=== PATIENT | female | born 1980 | race Caucasian/White ===

== ENCOUNTER 2017-05-08 20:00 | Emergency (ER) | payer MEDICAID ==
--- NOTE | 2017-05-08 21:46 | ERNOTE ---
Medical Problem HPI - Narrative Date of Service: 05/08/17 - General Chief Complaint: General Assessment Time Seen by Provider: 05/08/17 20:11 Source: patient, family, RN notes reviewed, old records Exam Limitations: no limitations - Immun/Allergies/Home Medications Immunizations: IMMUNIZATION HX Immunizations Up to Date Yes History of Influenza Vaccine No Hx Pneumococcal Vaccination No Allergies/Adverse Reactions: Allergies codeine [Codeine] Allergy (Unknown, Verified 05/08/17 20:08) Sulfa (Sulfonamide Antibiotics) [Sulfa(Sulfonamide Antibiotics)] Allergy ( Unknown, Verified 05/08/17 20:08) influenza virus vaccine qs 2015-101 [From Fluarix Quad 1585-3240 (PF)] Allergy ( Verified 05/08/17 20:08) Home Medications: HOME MEDICATIONS Baclofen 10 mg PO BID 06/25/14 [Last Taken Unknown] Cholecalciferol [Vitamin D] 5,000 unit PO DAILY 06/25/14 [Last Taken Unknown] Gabapentin [Neurontin] 900 mg PO TID 06/25/14 [Last Taken Unknown] Fingolimod HCl [Gilenya] 0.5 mg PO DAILY 09/01/14 [Last Taken Unknown] Morphine Sulfate [Ms Contin] 30 mg PO BID 08/06/15 [Last Taken Unknown] Venlafaxine HCl [Effexor] 75 mg PO DAILY 08/06/15 [Last Taken Unknown] Amantadine HCl [Amantadine] 100 mg PO BID 08/07/15 [Last Taken 08/06/15] Ibuprofen [Motrin] 400 mg PO Q4H PRN #0 tablet 08/08/15 [Last Taken Unknown] levETIRAcetam [Keppra] 500 mg PO BID #60 tablet 08/08/15 [Last Taken Unknown] - History of Present History Narrative: 36 year old female presents for concerns about a "cryptic" . She has not had a regular period for several months and has only had spotting, however, she had a tubal ligation several years ago. She has also taken several home tests that have all been negative. She reports that she had undetectable Hcg levels in the early stages of her previous pregnancies. She also reports being able to slate picker a heart beat in her abdomen that is faster than her own. In addition, she has felt movement in her lower abdomen. Her reports being able to palpate this. She was concerned that the sensation could be due to an intestinal parasite, so she treated herself for that. She has continued to have the fluttering sensation. Review of Systems - Review of Systems Constitutional: Absent: fever, chills EYE: Present: no symptoms reported ENT: Present: no symptoms reported Respiratory: Present: no symptoms reported Cardiology: Present: no symptoms reported Gastrointestinal/Abdominal: Absent: nausea, vomiting Genitourinary: Absent: frequency, dysuria, hematuria Musculoskeletal: Present: no symptoms reported Skin: Absent: rash, lesions, lumps Neurological: Absent: headache, dizziness/light-headedness Endocrine: Present: no symptoms reported Hematologic/Lymphatic: Present: no symptoms reported Psych: Present: emotional problems - Patient's Past Medical History Patient History - Medical: Kidney stone Patient History - Cardiac/Respiratory: No pertinent hx Patient History - Cancer: No Hx of Cancer Patient History - Surgical Procedures: Tubal Ligation, T & A Patient History - Other: None LMP (females 10-50): unknown - Family History Mother Family History - Cardiac/Respiratory: No pertinent hx Sister Family History - Medical: Alcohol Abuse, Depression Family History - Cardiac/Respiratory: No pertinent hx - Social History Living Situations: spouse Abuse History: No History of abuse Psych History: No pertinent hx Smoking Status: Never smoker Patient requests Smoking Cessation Consult: No Initiate information on Smoking Cessation: No Alcohol Use: none Drug Use: none - Immunizations Immunizations Up to Date: Yes Hx Pneumococcal Vaccination: No History of Influenza Vaccine: No Physical Exam - Physical Exam General Appearance: Present: wd/wn, alert, no apparent distress, anxious Neck: Present: normal inspection, nontender, supple Respiratory: Present: no respiratory distress, normal breath sounds, no accessory muscle use, lungs clear Cardiovascular/Chest: Present: regular rate, rhythm, no murmur Gastrointestinal/Abdominal: Present: normal bowel sounds, nontender, nondistended, soft, other - No FHT's heard with doppler Extremity Exam: Present: normal inspection, normal range of motion, no edema Neurological Exam: Present: alert, oriented, normal mood/affect, no motor/ sensory deficits Skin Exam: Present: normal color, warm/dry ED Progress - Results and Orders Patient's Lab Results:: I have reviewed the patient's lab results. - Vital Signs Patient's Vital Signs:: I have reviewed the patient's vital signs. Vital Signs: Vital Signs 05/08/17 20:04 Temperature 36.4 C L Pulse Rate 123 H Respiratory 18 Rate Blood Pressure 144/110 O2 Sat by Pulse 100 Oximetry - Progress/Reassessment Chief Complaint: General Assessment Progress:: Unchanged Plan - Plan Plan: Reassured patient regarding normal test results. Instructed to f/u with her PCP for further evaluation. She wanted to confirm that she is not with an ultrasound. Discussed that we cannot do an ultrasound on an emergent basis to confirm the absence of , particularly with a negative Hcg. Patient was initially upset, but did calm down with more explanation. Departure Clinical Impression: Feared complaint without diagnosis - Departure Disposition: Home Follow Up Needed Condition: Stable Additional Instructions: Contact Dr. Baca for follow-up, I recommend that you have an ultrasound done on an outpatient basis for further evaluation Referrals: Daily Baca DO [Primary Care Provider] -
[2017-05-08 21:51] VITALS: BP 113/80
== END 2017-05-08 21:52 | disposition home or self-care (01) ==
LOC: ER 20:00
DX: Z71.1 Person with feared health complaint in whom no diagnosis is made (principal)